=== PATIENT | female | born 1985 | race Caucasian/White ===

== ENCOUNTER 2025-02-22 09:01 | Emergency (ER) | payer BC ==
[~2025-02-22] VITALS: Ht 170.2 cm; Wt 62.1 kg
[2025-02-22 09:51] LABS: PREGNANCY TEST URINE QUAL NEGATIVE (NEGATIVE)
[2025-02-22] MEDS ORDERED: CARBAMAZEPINE 200 MG TABLET ONE (10:08)
[2025-02-22] MEDS ORDERED: KETOROLAC TROMETHAMINE 15 MG/ML VIAL ONE (10:08)
[2025-02-22] MEDS: CARBAMAZEPINE 200 MG TABLET PO ONE (10:22)
[2025-02-22] MEDS: KETOROLAC TROMETHAMINE 15 MG/ML VIAL IM ONE (10:22)
[2025-02-22] MEDS ORDERED: MORPHINE SULFATE INJ 4 MG/ML DISP.SYRIN ONE (10:54)
[2025-02-22] MEDS: MORPHINE SULFATE INJ 2 MG/ML DISP.SYRIN IM ONE (11:01)
[2025-02-22] MEDS ORDERED: NAPR-1009 PO (11:10)
[2025-02-22] MEDS ORDERED: ACET-2605 PO (11:10)
[2025-02-22] MEDS ORDERED: CARB100C9 PO (11:10)
[2025-02-22 12:23] VITALS: BP 120/89; TEMP 97.8; O2SAT 100
[2025-02-23] MEDS ORDERED: LIDO30AD10 TP (07:30)
== END 2025-02-22 12:23 | disposition home or self-care (01) ==
LOC: ER 09:01
DX: G50.0 Trigeminal neuralgia (principal)
CPT/HCPCS: 99284; 96372 ×2; 84703; J1885; J2270

== ENCOUNTER 2025-02-23 05:47 | Emergency (ER) | payer BC ==
[~2025-02-23] VITALS: Ht 170.2 cm; Wt 61.7 kg
[~2025-02-23 05:47] MED LIST: ACET-2605 PO; CARB100C9 PO; NAPR-1009 PO
[2025-02-23] MEDS ORDERED: LIDOCAINE 5% (PATCH) 1 EA PATCH TP ONE (06:40)
[2025-02-23] MEDS: LIDOCAINE 5% (PATCH) 1 EA PATCH TP SCH (06:42)
[2025-02-23] MEDS ORDERED: LIDO30AD10 TP (07:30)
[2025-02-23] MEDS ORDERED: KETOROLAC TROMETHAMINE 15 MG/ML VIAL ONE (07:40)
[2025-02-23] MEDS: KETOROLAC TROMETHAMINE 15 MG/ML VIAL IM ONE (07:46)
[2025-02-23 07:50] VITALS: BP 123/79; TEMP 98.2; O2SAT 99
== END 2025-02-23 07:50 | disposition home or self-care (01) ==
LOC: ER 05:47
DX: G50.0 Trigeminal neuralgia (principal)
CPT/HCPCS: 99283; 96372; J1885